=== PATIENT | male | born 1955 | race Caucasian/White ===

== ENCOUNTER → 2019-07-05 09:47 | Outpatient (CLI) | payer OTHER, SELFPAY ==
[2019-07-05 12:11] LABS: Erythrocyte Sedimentation Rate 6 mm/hr (0-20)
[2019-07-05 12:13] LABS: Absolute Lymphocyte Count 1.83 X10^3/uL (0.83-4.51); Absolute Neutrophil Count 3.4 X10^3/uL (2.0-7.7); Basophil# 0.05 X10^3/uL; Basophil% 0.8 % (0-1); Eosinophil# 0.19 X10^3/uL; Eosinophils% 3.1 % (0-5); Hematocrit 43.6 % (40-54); Hemoglobin 14.4 g/dL (13.0-16.5); Lymphocyte # 1.83 X10^3/ul (4.0); Lymphocyte % 29.6 % (19-41); Mean Corpuscular Hgb 30.1 pg (27.0-32.0); Mean Platelet Vol. 10.8 fl (6.2-12.0); Monocyte# 0.75 X10^3/uL; Monocyte% 12.1 % (0-10); NRBC Flagged by Analyzer 0 % (0-5); Neutrophil # 3.36 X10^3/uL (2.7-7.7); Neutrophil % 54.2 % (47-70); Platelet Count 335 K/mm3 (150-450); RBC Distribution Width CV 13.2 % (11.6-14.6); RBC Distribution Width SD 43.7 fl (35.1-43.9); Red Blood Count 4.79 M/mm3 (4.6-6.2); White Blood Count 6.2 K/mm3 (4.4-11.0)
[2019-07-05 12:36] LABS: ALB/GLOB Ratio 0.9 RATIO (0.9-2.4); AST(SGOT) 21 U/L (15-37); Alanine Aminotransfer ALT/SGPT 31 U/L (16-61); Albumin, Serum 3.7 g/dL (3.2-5.0); Alkaline Phosphatase 44 U/L (45-117); Anion Gap 5 (5-15); BUN 15 mg/dL (7-18); BUN/Creat Ratio 17.6 RATIO (10-20); CRP < 2.90 mg/L (0.0-3.0); Calcium,Total 8.4 mg/dL (8.5-10.1); Chloride 108 mmol/L (98-107); Creatinine, Serum 0.85 mg/dL (0.70-1.30); EST Glomerular Filtration Rate 97 mL/min (>60); Est Glom Filt Rate - Afr Amer 117 mL/min (>60); Glucose 65 mg/dL (74-106); Potassium 3.7 mmol/L (3.5-5.1); Protein, Total 7.7 g/dL (6.4-8.2); Rheumatoid Factor < 10.0 IU/mL (<15); Sodium Level 141 mmol/L (136-145)
[2019-07-05 13:24] LABS: Hepatitis B Surface Antibody Reactive; Hepatitis B Surface Antigen Non-Reactive (Nonreactive); Hepatitis C Antibody Non-Reactive (Nonreactive)
[2019-07-07 14:16] LABS: ANTINUCLEAR ANTIBODIES DIRECT Positive (Negative)
[2019-07-11 12:30] LABS: CCP IgG Antibodies 7 units (0-19); HLA B27 Negative (.); Hepatitis B Core AB IgM Negative (Negative)
== END ==
PROVIDERS: Family Provider Family Medicine; PCP Family Medicine; Referring Provider Internal Medicine Rheumatology; Visit Provider Internal Medicine Rheumatology
DX: M06.4 Inflammatory polyarthropathy (principal); M72.2 Plantar fascial fibromatosis; M21.40 Flat foot [pes planus] (acquired), unspecified foot; E78.5 Hyperlipidemia, unspecified; K58.2 Mixed irritable bowel syndrome; K57.90 Diverticulosis of intestine, part unspecified, without perforation or abscess without bleeding
CPT/HCPCS: 36415; 80053; 81374; 85025; 85652; 86038; 86140; 86200; 86431; 86705; 86706; 86803; 87340

== ENCOUNTER → 2019-08-05 16:26 | Outpatient (CLI) | payer OTHER, SELFPAY ==
[2019-08-05 17:13] LABS: Color, Urine Yellow (Yellow); Glucose, Dipstick Normal (Normal); Ketone-Dipstick Negative (Negative); Leukocyte Esterase-Dipstick Negative /ul (Negative); Nitrite-Dipstick Negative (Negative); Occult Blood-Urine Negative /ul (Negative); Protein-Dipstick Negative (Negative); Specific Gravity, Urine 1.025 (1.002-1.030); Urine Bilirubin Dipstick Negative (Negative); Urine Clarity Clear (Clear); Urine Urobilinogen Normal (Normal)
[2019-08-05 17:23] LABS: Protein:Creat Ratio 87 mg/g CRE (0-200)
== END ==
PROVIDERS: Family Provider Family Medicine; PCP Family Medicine; Referring Provider Internal Medicine Rheumatology; Visit Provider Internal Medicine Rheumatology
DX: M06.4 Inflammatory polyarthropathy (principal); M72.2 Plantar fascial fibromatosis; M21.40 Flat foot [pes planus] (acquired), unspecified foot; E78.5 Hyperlipidemia, unspecified; K58.2 Mixed irritable bowel syndrome; K57.90 Diverticulosis of intestine, part unspecified, without perforation or abscess without bleeding; R76.8 Other specified abnormal immunological findings in serum
CPT/HCPCS: 81002; 82570; 84156

== ENCOUNTER → 2022-01-28 13:47 | Outpatient (CLI) | payer OTHER, SELFPAY ==
--- NOTE | 2022-01-28 14:08 | RAD_ITS ---
EXAM: XR CERVICAL SPINE, 4 OR 5 VIEWS CLINICAL INDICATION: M47.812 NECK PAIN THAT SHOOTS DOWN RIGHT ARM FOR 3 MONTHS. NO INJURY. TECHNIQUE: Frontal, lateral and bilateral oblique views of the cervical spine. This report was created using [employer] report generation technology. COMPARISON: None. FINDINGS: VERTEBRAE: C2-3. There is endplate spondylosis of the vertebral body. C3-4. There is endplate spondylosis of the vertebral body. C5-6. Loss of intervertebral disc height. There is endplate spondylosis of the vertebral body. Preservation of the normal cervical lordosis. No significant facet arthropathy. DISC SPACES: C3-4, C4-5, C5-6 and C6-7. Narrowing of the bilateral intervertebral neuroforamina. SOFT TISSUES: Unremarkable. No prevertebral soft tissue widening. LUNG APICES: Clear. RAD/Cerv Spine 4 or 5 Views IMPRESSION: There are degenerative findings of the cervical spine. MRI can better evaluate Electronically Signed: Gerhard Bowman MD at 17:03 EDT ,
== END ==
PROVIDERS: PCP Family Medicine
DX: M47.812 Spondylosis without myelopathy or radiculopathy, cervical region (principal)
CPT/HCPCS: 72050